=== PATIENT | female | born 1960 | race Caucasian/White ===

== ENCOUNTER 2018-11-01 08:20 | Day surgery (SDC) | payer OTHER ==
[~2018-11-01] VITALS: Ht 167.6 cm; Wt 64.9 kg
[2018-11-01 11:11] VITALS: BP 123/71
== END 2018-11-01 11:28 | disposition home or self-care (01) | DRG 951 ==
LOC: ENDO 08:20
PROVIDERS: ATTEND Surgery
PROC: 0DJD8ZZ Inspection of Lower Intestinal Tract, Via Natural or Artificial Opening Endoscopic (ICD-10-PCS; principal; 2018-11-01)
DX: Z12.11 Encounter for screening for malignant neoplasm of colon (principal); Z85.3 Personal history of malignant neoplasm of breast

== ENCOUNTER → 2018-11-20 | Outpatient (REF) ==
[2018-11-20 08:58] LABS: CHOLESTEROL HDL RATIO 4.2 (<4.4 (CALC))
== END | disposition home or self-care (01) | DRG 951 ==
LOC: LAB 07:38
PROVIDERS: ATTEND Family Medicine
DX: Z02.6 Encounter for examination for insurance purposes (principal)

== ENCOUNTER 2018-12-15 06:01 | Day surgery (SDC) | payer OTHER ==
[~2018-12-15] VITALS: Ht 167.6 cm; Wt 64.9 kg
[~2018-12-15 06:01] MED LIST: MULTIVITAMI1 PO
[2018-12-15] MEDS ORDERED: AMOXICILLI250 MG/5 M PO (08:38)
[2018-12-15] MEDS ORDERED: ZOFRAN ODT4 MG PO (08:38)
[2018-12-15] MEDS ORDERED: NORCO1 TA1 PO (08:38)
[2018-12-15 09:11] VITALS: BP 122/63
== END 2018-12-15 09:15 | disposition home or self-care (01) | DRG 138 ==
LOC: ORM 06:01
PROVIDERS: ATTEND Otolaryngology
PROC: 0CB3XZZ Excision of Soft Palate, External Approach (ICD-10-PCS; principal; 2018-12-15)
DX: D10.39 Benign neoplasm of other parts of mouth (principal)
CPT/HCPCS: J1100